=== PATIENT | female | born 1945 | race Caucasian/White ===

== ENCOUNTER 2020-09-15 06:54 | Outpatient (CLI) | payer MEDICARE | END 2020-09-15 23:59 | disposition home or self-care (01) | LOC: LAB 06:54 | PROVIDERS: ATTEND Orthopaedic Surgery | DX: Z01.812 Encounter for preprocedural laboratory examination (principal); Z20.822 Contact with and (suspected) exposure to COVID-19 ==

== ENCOUNTER 2020-09-17 08:21 | Inpatient (IN) | payer MEDICARE ==
[~2020-09-17] VITALS: Ht 162.6 cm; Wt 112.9 kg
[2020-09-17] MEDS ORDERED: POLYMYXIN B SULFATE 500,000 UNITS, BACITRACIN 50,000 UNITS, NORMAL SALINE 20 ML MC ONE (08:45)
[2020-09-17] MEDS ORDERED: CLINDAMYCIN PHOSPHATE 600 MG/4 ML VIAL ONE (09:31)
[2020-09-17] MEDS ORDERED: BUPIVACAINE PF 0.5% 30 ML VIAL ONE (09:32)
[2020-09-17] MEDS ORDERED: HYDROMORPHONE 2 MG/1 ML DISP.SYRIN ONE (09:32)
[2020-09-17] MEDS ORDERED: VANCOMYCIN 1000 MG VIAL ONE (10:37)
[2020-09-17] MEDS ORDERED: BUPIVACAINE/EPI PF 0.25% 30 ML VIAL ONE (11:51)
[2020-09-17] MEDS ORDERED: IV LACTATED RINGERS SOLUTION 1,000 ML IV PRN (14:00)
[2020-09-17 14:05] VITALS: BP 152/66
--- NOTE | 2020-09-17 14:05 | NUR ---
Received report from [facility] recovery room. On NC 2 liters. Patient in to room 314, AAOx4. vitals stable: 97.5 temp, hr 69, 95% saturation when taken off oxygen. sbp 152/66. No c/of pain. Left knee area with cast padding extremity cool to touch pt. able to wiggle her toes dorsalis pedis pulse, audible via doppler and sensation present as verbalized by pt. Pt's at bedside.
[2020-09-17] MEDS ORDERED: CHOL100043 PO (14:09)
[2020-09-17] MEDS ORDERED: ATOR80TA PO (14:09)
[2020-09-17] MEDS ORDERED: ATEN25TA PO (14:09)
[2020-09-17] MEDS ORDERED: APIX5TAB PO (14:09)
[2020-09-17] MEDS ORDERED: MIRA25TA PO (14:09)
[2020-09-17] MEDS ORDERED: GABA600T12 PO (14:09)
[2020-09-17] MEDS ORDERED: MULT-647 PO (14:09)
--- NOTE | 2020-09-17 14:41 | NUR ---
As reported by Chava. pt hasn't voided post surgery.
--- NOTE | 2020-09-17 15:00 | NUR ---
Admitting Narendra Rico notified of pt's arrival to room 314. updated on pt's condition as well.
[2020-09-17] MEDS: CLINDAMYCIN PHOSPHATE IV 600 MG in IV DEXTROSE 5% 100 ML IV SCH ×2 (15:51→21:03)
[2020-09-17 16:00] VITALS: BP 127/66
--- NOTE | 2020-09-17 17:39 | NUR ---
Left pt. on bed resting comfortably, no c/of pain. tolerating diet well no n/v/d/ reported. IV to left hand area. vitals within normal. LLE with dorsalis pedis pulse present extremity cold to touch pt. able to wiggle her toes and sensation present.
--- NOTE | 2020-09-17 17:57 | NUR ---
No voiding reported up to now and at this time pt. educated on the need to perform a bladder scan to make sure everything is working ok and to make sure she's not retaining urine. Pt. refused procedure at this time stating "I don't think I need it I have a pad an I think I'll go now" charge nurse at bedside witnessing as pt is also requesting to spend the night at bedside.
[2020-09-17] MEDS ORDERED: TEMAZEPAM 7.5 MG CAPSULE PO PRN ×2 (18:15→21:15)
[2020-09-17] MEDS ORDERED: MAGNESIUM HYDROXIDE 30 ML LIQUID UDC PO PRN (18:15)
[2020-09-17] MEDS ORDERED: ACETAMINOPHEN 325 MG TABLET PO PRN (18:15)
[2020-09-17] MEDS ORDERED: ONDANSETRON 4 MG/2 ML VIAL IV PRN (18:15)
[2020-09-17] MEDS ORDERED: Z GUARD REMEDY PASTE 57 GM TUBE TOP PRN (18:15)
[2020-09-17 20:12] VITALS: BP 106/50
[2020-09-17] MEDS: ATORVASTATIN 40 MG TABLET PO SCH (20:43)
--- NOTE | 2020-09-17 20:45 | NUR ---
Received patient in bed AAOx4.On RA.No s/s of distress noted.S/P left total knee replacement with dressing intact clean and dry.Left leg elevated on pillow.Ext cool to touch.Capillary refill good.Able to wiggle toes.Iv on left hand patent and intact. Adm IV ATb as ordered no a/r noted.Patient refused to take Neurontin 600 mg, per Patient she only takes 300 mg.HARDNESS INSPECTOR Norman examined and seen patient and made aware with order to change Neurontin 300 mg.VSS .Will continue to monitor.
[2020-09-17] MEDS ORDERED: Medication Not On Formulary EA (Atorvastatin Calcium (Lipitor) 80 MG) PO SCH (21:00)
[2020-09-17] MEDS ORDERED: GABAPENTIN 300 MG CAPSULE PO SCH (21:00)
[2020-09-17] MEDS: GABAPENTIN 300 MG CAPSULE PO SCH (21:56)
[2020-09-17] MEDS: HYDROCODONE/APAP 5-325MG TABLET PO PRN (22:25)
[2020-09-18 04:12] VITALS: BP 97/47
--- NOTE | 2020-09-18 04:30 | NUR ---
Bladder scan done 2x with 420 ml around MN.Explained leiva catheter insertion patient refused.Risk and benefits explained, patient still refused. Stated she has a Pad and she'll be able to go later.Bladder non tender, non distended.Re-checked bladder scan at 0400 with <200ml .Patient was able to urinate. Pad was wet.Still refused f/c at this time.
[2020-09-18 05:45] LABS: MEAN CORPUSCULAR HEMOGLOBIN 29.9 uug (24.7-32.8); MEAN CORPUSCULAR VOLUME 92.3 fL (75.5-95.3); PLATELET COUNT (AUTO) 167 K/uL (179-408)
[2020-09-18 05:52] LABS: POTASSIUM 4.3 mmol/L (3.5-5.1)
[2020-09-18] MEDS: CHOLECALCIFEROL 1,000 UNIT TABLET PO SCH (08:02)
[2020-09-18] MEDS: MULTIVIT, IRON, MIN NO. 8, FA TABLET PO SCH (08:02)
[2020-09-18] MEDS: ATENOLOL 25 MG TABLET PO SCH (09:00)
[2020-09-18] MEDS ORDERED: MULTIVITAMINS THERAPEUTIC PO SCH (09:00)
[2020-09-18] MEDS ORDERED: GABAPENTIN 600 MG PO SCH (09:00)
[2020-09-18] MEDS ORDERED: Mirabegron (Myrbetriq) 25 MG) PO SCH (09:00)
[2020-09-18] MEDS: HYDROCODONE/APAP 5-325MG TABLET PO PRN ×3 (10:00→20:20)
[2020-09-18 11:58] VITALS: BP 93/54
[2020-09-18 20:00] VITALS: BP 135/53
[2020-09-18] MEDS: GABAPENTIN 300 MG CAPSULE PO SCH (20:19)
[2020-09-18] MEDS: ATORVASTATIN 40 MG TABLET PO SCH (20:19)
[2020-09-18] MEDS: IV NS 1000 ML 1,000 ML IV PRN (20:50)
--- NOTE | 2020-09-19 05:47 | NUR ---
Pt slept throughout the night. C/o pain in left knee, relieved with [place]. Pt cooperative and pleasant. Refusing IV fluids, stating that she drinks enough water orally. Safety and comfort provided, call light within reach. No other issues or concerns at this time, will endorse to day shift.
[2020-09-19 05:48] LABS: HEMATOCRIT 36.5 % (31.2-41.9); MEAN CORPUSCULAR HEMOGLOBIN 30.1 uug (24.7-32.8); MEAN CORPUSCULAR VOLUME 91.8 fL (75.5-95.3); PLATELET COUNT (AUTO) 147 K/uL (179-408)
[2020-09-19 05:57] LABS: CREATININE 0.9 mg/dL (0.6-1.3); MAGNESIUM 2.2 mg/dL (1.8-2.4); POTASSIUM 4.3 mmol/L (3.5-5.1)
[2020-09-19] MEDS: CHOLECALCIFEROL 1,000 UNIT TABLET PO SCH (08:07)
[2020-09-19] MEDS: MULTIVIT, IRON, MIN NO. 8, FA TABLET PO SCH (08:07)
[2020-09-19] MEDS: HYDROCODONE/APAP 5-325MG TABLET PO PRN (08:12)
[2020-09-19] MEDS: ATENOLOL 25 MG TABLET PO SCH (08:54)
[2020-09-19] MEDS ORDERED: APIXABAN 5 MG TABLET PO SCH ×2 (09:00→17:00)
[2020-09-19] MEDS ORDERED: IV NORMAL SALINE 500 ML IV ONE (10:30)
--- NOTE | 2020-09-19 10:31 | NUR ---
pt bp is 88/44 per md orders 500ml juliana given
[2020-09-19] MEDS: IV NS 1000 ML 1,000 ML IV PRN (11:17)
[2020-09-19 11:21] VITALS: BP 139/56
[2020-09-19 15:23] VITALS: BP 122/65
[2020-09-19] MEDS ORDERED: DEXAMETHASONE SOD PHOSPHATE 4 MG INJ IV ONE (16:29)
[2020-09-19] MEDS ORDERED: ONDANSETRON 4 MG/2 ML VIAL IV ONE (16:29)
[2020-09-19] MEDS ORDERED: KETOROLAC TROMETHAMINE 30 MG INJ IM ONE (16:29)
[2020-09-19] MEDS ORDERED: LIDOCAINE-MPF 2% 5 ML VIAL IJ ONE (16:29)
[2020-09-19] MEDS ORDERED: IV NORMAL SALINE 1000 ML BAG IV ONE ×2 (16:29)
[2020-09-19] MEDS ORDERED: SEVOFLURANE 250 ML BOTTLE IH ONE (16:29)
[2020-09-19] MEDS ORDERED: PROPOFOL 200 MG/20 ML BOTTLE IV ONE (16:29)
[2020-09-19] MEDS ORDERED: EPHEDRINE SULFATE 50 MG/ML AMPUL IM ONE (16:29)
--- NOTE | 2020-09-19 16:29 | NUR ---
dc orders received noted and carried out.dc instruction and education given to the pt and her family ,pt dc tp aru via bed with iv heplock in stable condition
== END 2020-09-19 16:30 | DRG 470 ==
LOC: DS 08:21 → MEDSURG3 14:17
PROVIDERS: ADMIT Nurse Practitioner Family; ATTEND Nurse Practitioner Family
PROC: 0SRD0J9 Replacement of Left Knee Joint with Synthetic Substitute, Cemented, Open Approach (ICD-10-PCS; principal; 2020-09-17)
DX: M17.12 Unilateral primary osteoarthritis, left knee (principal); Z68.41 Body mass index [BMI] 40.0-44.9, adult; I69.320 Aphasia following cerebral infarction; I10 Essential (primary) hypertension; E78.5 Hyperlipidemia, unspecified; I95.1 Orthostatic hypotension; E66.01 Morbid (severe) obesity due to excess calories
CPT/HCPCS: 36415; 73560; 83735; 85025; A4649; A4663; C1713; C1776; G0378; J1100; J1170; J1885; J2405; J3370; J3490; J7030; J7040; J7060

== ENCOUNTER 2020-09-19 10:59 | Inpatient (IN) | payer MEDICARE ==
[~2020-09-19] VITALS: Ht 162.6 cm; Wt 112.9 kg
[~2020-09-19 10:59] MED LIST: APIX5TAB PO; ATEN25TA PO; ATOR80TA PO; CHOL100043 PO; GABA600T12 PO; MIRA25TA PO; MULT-647 PO
[2020-09-19] MEDS ORDERED: Z GUARD REMEDY PASTE 57 GM TUBE TOP PRN (17:30)
--- NOTE | 2020-09-19 17:58 | NUR ---
75 YEAR OLD FEMALE ADMITTED TO ROOM 325 FOR SP LEFT KNEE REPLACEMENT.PT IS AXOX4.CALL LIGHT WITH IN MD CESAR NOTIFIED FOR THE ADMISSION ORDERS
[2020-09-19 18:21] VITALS: BP 102/50
[2020-09-19] MEDS: IV NS 1000 ML 1,000 ML IV SCH (18:24)
[2020-09-19 20:00] VITALS: BP 137/60
[2020-09-19] MEDS: GABAPENTIN 300 MG CAPSULE PO SCH (21:42)
[2020-09-19] MEDS: ATORVASTATIN 40 MG TABLET PO SCH (21:42)
[2020-09-20 04:00] VITALS: BP 123/78
--- NOTE | 2020-09-20 05:21 | NUR ---
Received patient resting in bed. No s/s of acute distress noted at this time. On RA denies SOB. Oral temp 100.5 at the beginning of the shift, removed excess blankets and provided cooling measures, recent temp 99.8. Left hand IV patent and intact. Patient denies pain and discomfort. Safety measures in place, all patient needs met and attended to. Will endorse to oncoming nurse.
[2020-09-20] MEDS: IV NS 1000 ML 1,000 ML IV SCH (06:26)
[2020-09-20 08:00] VITALS: BP 144/67
[2020-09-20] MEDS: ATENOLOL 25 MG TABLET PO SCH (09:16)
[2020-09-20] MEDS: CHOLECALCIFEROL 1,000 UNIT TABLET PO SCH (09:16)
[2020-09-20] MEDS: MULTIVITAMINS,THERAPEUTIC TABLET PO SCH (09:16)
[2020-09-20] MEDS: APIXABAN 5 MG TABLET PO SCH ×2 (09:17→17:27)
[2020-09-20] MEDS: HYDROCODONE/APAP 5-325MG TABLET PO PRN ×2 (12:56→20:24)
[2020-09-20 16:00] VITALS: BP 115/52
[2020-09-20] MEDS ORDERED: FLEET ENEMA 133 ML BOTTLE RC PRN (16:45)
[2020-09-20] MEDS ORDERED: BISACODYL 10 MG SUPP.RECT RC PRN (16:45)
[2020-09-20] MEDS ORDERED: MAGNESIUM HYDROXIDE 30 ML LIQUID UDC PO PRN (16:45)
[2020-09-20 20:00] VITALS: BP 122/65
[2020-09-20] MEDS: GABAPENTIN 300 MG CAPSULE PO SCH (20:23)
[2020-09-20] MEDS: ATORVASTATIN 40 MG TABLET PO SCH (20:23)
--- NOTE | 2020-09-20 21:13 | NUR ---
Received pt resting in bed. AAO x4. Pt's was at bedside. No acute distress noted. C/o 6/10 pain on the left knee, PRN [place] and other due meds given as ordered. Encourage pt to turn and reposition, pt refused. Risks and benefits explained. Pt stated that mobility increases her pain. Safety measures maintained. Bed alarm on. Encouraged pt to use call light. Will continue to monitor.
[2020-09-21 04:00] VITALS: BP 121/58
[2020-09-21 08:00] VITALS: BP 130/57
[2020-09-21] MEDS: CHOLECALCIFEROL 1,000 UNIT TABLET PO SCH (08:07)
[2020-09-21] MEDS: MULTIVITAMINS,THERAPEUTIC TABLET PO SCH (08:07)
[2020-09-21] MEDS: ATENOLOL 25 MG TABLET PO SCH (08:14)
[2020-09-21] MEDS: HYDROCODONE/APAP 5-325MG TABLET PO PRN (08:15)
[2020-09-21] MEDS: APIXABAN 5 MG TABLET PO SCH ×2 (08:39→17:26)
[2020-09-21] MEDS: OXYCODONE HCL 5 MG TABLET PO PRN ×2 (13:35→19:58)
[2020-09-21 16:11] VITALS: BP 117/44
[2020-09-21] MEDS: ATORVASTATIN 40 MG TABLET PO SCH (20:00)
[2020-09-21] MEDS: GABAPENTIN 300 MG CAPSULE PO SCH (20:00)
[2020-09-21 20:14] VITALS: BP 119/55
--- NOTE | 2020-09-21 20:42 | NUR ---
Received pt resting in bed. was at bedside. AAO x4. No acute distress noted. C/o 8/10 pain on the left knee, PRN Oxyir and other due meds given as ordered. Encouraged pt to turn and reposition, pt refused and stated she will feel more pain and that she will try to go to commode tomorrow to practice her mobility. Risks and benefits explained. Safety measures maintained. Call light and personal items within reach. Will continue to monitor.
[2020-09-22 04:36] VITALS: BP 107/50
[2020-09-22] MEDS: OXYCODONE HCL 5 MG TABLET PO PRN ×3 (06:11→20:47)
[2020-09-22 08:00] VITALS: BP 101/45
[2020-09-22] MEDS: ATENOLOL 25 MG TABLET PO SCH (09:00)
[2020-09-22] MEDS: MULTIVITAMINS,THERAPEUTIC TABLET PO SCH (09:11)
[2020-09-22] MEDS: CHOLECALCIFEROL 1,000 UNIT TABLET PO SCH (09:11)
[2020-09-22] MEDS: APIXABAN 5 MG TABLET PO SCH ×2 (09:13→16:34)
[2020-09-22] MEDS: MIRALAX 17 GM POWD.PACK PO SCH (10:55)
--- NOTE | 2020-09-22 11:46 | NUR ---
Pt in A&Ox4, able to verbalize needs, no acute distress noted. Due medications given per order, no a/r noted. Morning Atenolol held d/t decreased BP, MD Dr. Bates aware. Pt stated no BM since before admission, Dr. Bates at bedside and aware with new orders. Miralax administered per order, will monitor for effectiveness. Pt participated with OT this am, able to sit on edge of bed but refused to stand, see OT documentation. Fall precautions and safety measures in place. Call light and belongings within reach.
--- NOTE | 2020-09-22 12:45 | NUR ---
CPM machine removed at 2 hours, pt tolerated well. Pt reported L knee pain 8/10 on adult scale, PRN Oxyir administered per order. Dr. Padilla at bedside this afternoon, new order in place, will carry out.
[2020-09-22 16:44] VITALS: BP 124/64
--- NOTE | 2020-09-22 18:17 | NUR ---
Pt in bed finishing dinner, all needs met at this time. Jerry at bedside, nursing care discussed with pt and family. Pt with no BM at this time, offered PRN Fleet enema. Pt declined enema, risks, benefits, side effects discussed with pt, continued to decline at this time. Pt declined getting OOB to [facility], per pt "maybe tomorrow". Encouraged pt and reinforced ARU plan of care. Ice pack in place on left knee and cool washcloth on forehead per pt request. Will endorse to security shift manager nurse for continuity of care.
[2020-09-22 20:32] VITALS: BP 118/67
[2020-09-22] MEDS: GABAPENTIN 300 MG CAPSULE PO SCH (20:39)
[2020-09-22] MEDS: ATORVASTATIN 40 MG TABLET PO SCH (20:39)
--- NOTE | 2020-09-22 21:00 | NUR ---
Received pt resting in bed. AAO x4. at bedside. No acute distress noted. C/o 7/10 pain on the left knee, PRN OXY administered per pt request prior to being cleaned/changed. All due medications administered, and tolerated well. Needs attended too, kept comfortable and dry. Safety measures maintained. Will continue to monitor.
[2020-09-23 04:45] VITALS: BP 121/59
[2020-09-23] MEDS: OXYCODONE HCL 5 MG TABLET PO PRN ×3 (06:49→21:50)
[2020-09-23 08:09] VITALS: BP 124/53
[2020-09-23] MEDS: MIRALAX 17 GM POWD.PACK PO SCH (08:40)
[2020-09-23] MEDS: CHOLECALCIFEROL 1,000 UNIT TABLET PO SCH (08:40)
[2020-09-23] MEDS: MULTIVITAMINS,THERAPEUTIC TABLET PO SCH (08:40)
[2020-09-23] MEDS: ATENOLOL 25 MG TABLET PO SCH (08:41)
[2020-09-23] MEDS: APIXABAN 5 MG TABLET PO SCH ×2 (08:42→16:55)
[2020-09-23 12:11] VITALS: BP 146/77
--- NOTE | 2020-09-23 13:00 | NUR ---
Dr. Pryor notified pt's original dressing coming loose. Dr. Pryor with order to change dressing. Will carry out.
[2020-09-23 16:05] VITALS: BP 147/55
--- NOTE | 2020-09-23 16:09 | NUR ---
INDIVIDUALIZED PLAN OF CARE
[2020-09-23] MEDS ORDERED: BISACODYL 5 MG TABLET.DR PO PRN (19:00)
--- NOTE | 2020-09-23 19:10 | NUR ---
Pt in bed, no acute distress noted. Dressing changed per order, photo taken for chart. Per PT and OT, pt presented with difficulty during therapeutic activities. Pt reported severe pain in left knee, PRN Oxyir administered per order. Per pt and , pt more lethargic after medication administration. Pt stated she would like to speak with Dr. Padilla regarding medication, Dr. Padilla informed. Pt stated she was "unhappy with the care here". Encouraged pt to express feelings, needs met. warehouse logistics manager informed and spoke with pt and . Pt noted with no BM this shift, pt refused PRN Dulcolax suppository and Fleet enema. Dr. Rollins made aware with new order. Will endorse to research clerk for continuity of care.
[2020-09-23] MEDS ORDERED: ACETAMINOPHEN 325 MG TABLET PO PRN (20:00)
[2020-09-23] MEDS: GABAPENTIN 300 MG CAPSULE PO SCH (20:16)
[2020-09-23] MEDS: ATORVASTATIN 40 MG TABLET PO SCH (20:16)
[2020-09-23 20:27] VITALS: BP 124/50
--- NOTE | 2020-09-23 22:00 | NUR ---
99.9 fever, cooling measure completed, administered Tylenol temp decreased 98.8. No new changed.
--- NOTE | 2020-09-23 22:45 | NUR ---
Pt in bed, no acute distress noted. Pt reported mild discomfort at the beginning of the shift. Pain increased 9/10 administered Oxycodone PRN, as per pt request. All due medications administered, and tolerated well. administered PRN Dulcolax PO. Need attend too. Pt stated she was "unhappy with the care here and wants to go home tomorrow, not happy with her progress." Encouraged pt to express feelings. Changed pt, kept clean and dry and comfortable. Call light within reach, encouraged pt to use. Safety measures maintained. Continue plan of care.
[2020-09-24 04:00] VITALS: BP 107/46
[2020-09-24] MEDS: OXYCODONE HCL 5 MG TABLET PO PRN ×3 (06:43→20:41)
[2020-09-24] MEDS: MIRALAX 17 GM POWD.PACK PO SCH (08:52)
[2020-09-24] MEDS: CHOLECALCIFEROL 1,000 UNIT TABLET PO SCH (08:52)
[2020-09-24] MEDS: MULTIVITAMINS,THERAPEUTIC TABLET PO SCH (08:52)
[2020-09-24] MEDS: APIXABAN 5 MG TABLET PO SCH ×2 (08:52→17:33)
[2020-09-24 09:01] VITALS: BP 122/60
[2020-09-24] MEDS: ATENOLOL 25 MG TABLET PO SCH (09:01)
--- NOTE | 2020-09-24 09:15 | NUR ---
Pt sat on edge of bed for breakfast, tolerated well, no acute distress. VSS. Safety and fall precautions maintained. Call light and belongings within reach.
--- NOTE | 2020-09-24 13:34 | NUR ---
Dr. Padilla at bedside this afternoon, spoke with pt and her . Pt requested scheduled pain medication instead of PRN. to adjust order.
--- NOTE | 2020-09-24 14:00 | NUR ---
Pt requested to speak with case specialist, case specialist informed.
--- NOTE | 2020-09-24 15:18 | NUR ---
INTERDISCIPLINARY TEAM CONFERENCE
--- NOTE | 2020-09-24 15:30 | NUR ---
PATIENT SET UP ON CPM, NO MORE THAN 2HR INCREMENTS AT A TIME. PT AGREEABLE TO CALL FOR NURSING ASSIST FOR CPM ON/OFF PER MD ORDERS. GOOD TY UP TO 60 DEG OF KNEE FLEXION.
--- NOTE | 2020-09-24 15:40 | NUR ---
Pt requested PRN Oxyir for severe L knee pain, administered per order. Per pt, effective.
[2020-09-24 16:00] VITALS: BP 109/52
--- NOTE | 2020-09-24 17:30 | NUR ---
CPM machine removed with POTTER OR CERAMIC ARTIST and RN, pt tolerated well, no reports of pain/discomfort at this time.
--- NOTE | 2020-09-24 19:00 | NUR ---
Pt in bed, no acute distress, all needs met at this time. Due medications given per order, no a/r noted. Per CAN INTAKE WORKER, pt declined evening diaper change. This chief writer and CAN INTAKE WORKER encouraged pt, pt continued to decline and stated "I want to be changed around 9 o'clock". No BM noted today. Will endorse to respiratory therapy director nurse. Pt requested not to be awoken for 0400 vital signs, will endorse. Safety maintained, call light and belongings within reach.
[2020-09-24 20:00] VITALS: BP 121/60
[2020-09-24] MEDS: ATORVASTATIN 10 MG TABLET PO SCH (20:40)
[2020-09-24] MEDS: GABAPENTIN 300 MG CAPSULE PO SCH (20:40)
--- NOTE | 2020-09-24 21:00 | NUR ---
Pt in bed, no acute distress noted. Pt report 6/10 pain and request PRN oxy. All due medications administered, and tolerated well. Need attend too. Per AIRBORNE SENSOR SPECIALIST, pt declined evening diaper change. Encouraged pt to be changed before going to bed, pt continued to decline and stated "I want to be changed in the morning. Pt is very sleepy and does not want to be disturbed at this time. Call light within reach, encouraged pt to use. Safety measures maintained. Continue plan of care.
[2020-09-24] MEDS ORDERED: NALOXONE HCL 0.4 MG/ML AMPUL IV PRN (22:30)
[2020-09-25] MEDS: OXYCODONE HCL 10 MG TAB.SR.12H PO SCH ×3 (06:26→21:05)
[2020-09-25 06:33] LABS: HEMATOCRIT 32.5 % (31.2-41.9); MEAN CORPUSCULAR HEMOGLOBIN 30.1 uug (24.7-32.8); MEAN CORPUSCULAR VOLUME 90.6 fL (75.5-95.3); PLATELET COUNT (AUTO) 360 K/uL (179-408)
[2020-09-25 07:01] LABS: THYROID STIMULATING HORMONE 2.1 mIU/mL (0.358-3.740)
[2020-09-25 07:17] LABS: BILIRUBIN,TOTAL 2.2 mg/dL (0.2-1.0); CREATININE 0.8 mg/dL (0.6-1.3); MAGNESIUM 2.4 mg/dL (1.8-2.4); PHOSPHOROUS 3.8 mg/dL (2.5-4.9); POTASSIUM 4.8 mmol/L (3.5-5.1); TOTAL PROTEIN, SERUM 5.9 g/dL (6.4-8.2)
[2020-09-25] MEDS: CHOLECALCIFEROL 1,000 UNIT TABLET PO SCH (09:02)
[2020-09-25] MEDS: APIXABAN 5 MG TABLET PO SCH ×3 (09:02→21:06)
[2020-09-25] MEDS: MULTIVITAMINS,THERAPEUTIC TABLET PO SCH (09:02)
[2020-09-25] MEDS: MIRALAX 17 GM POWD.PACK PO SCH (09:04)
[2020-09-25] MEDS: ATENOLOL 25 MG TABLET PO SCH (09:04)
[2020-09-25 09:05] VITALS: BP 137/71
[2020-09-25 15:47] VITALS: BP 112/74
[2020-09-25 20:23] VITALS: BP 127/63
[2020-09-25] MEDS: GABAPENTIN 300 MG CAPSULE PO SCH (21:00)
[2020-09-25] MEDS: ATORVASTATIN 10 MG TABLET PO SCH (21:04)
--- NOTE | 2020-09-25 21:20 | NUR ---
Received Pt in bed, no acute distress noted. Pt c/o pain and request PRN oxy and all due medications to be administered around 2100 and assist with settling for the night, tolerated well. Assisted with evening care and brief change, Pt stated "I do not want to be bothered until 0630". Safety measures and call light within reach, encouraged pt to use to call to be changed during the night.
[2020-09-26 04:00] VITALS: BP 126/56
[2020-09-26] MEDS: OXYCODONE HCL 10 MG TAB.SR.12H PO SCH ×3 (06:14→21:19)
[2020-09-26 06:48] LABS: MEAN CORPUSCULAR HEMOGLOBIN 30.4 uug (24.7-32.8); MEAN CORPUSCULAR VOLUME 90.5 fL (75.5-95.3); PLATELET COUNT (AUTO) 413 K/uL (179-408)
[2020-09-26 07:08] LABS: CREATININE 0.8 mg/dL (0.6-1.3); MAGNESIUM 2.2 mg/dL (1.8-2.4); PHOSPHOROUS 3.8 mg/dL (2.5-4.9); POTASSIUM 3.9 mmol/L (3.5-5.1); TOTAL PROTEIN, SERUM 6.2 g/dL (6.4-8.2)
[2020-09-26 08:38] VITALS: BP 131/67
[2020-09-26] MEDS: ATENOLOL 25 MG TABLET PO SCH (08:50)
[2020-09-26] MEDS: CHOLECALCIFEROL 1,000 UNIT TABLET PO SCH (08:50)
[2020-09-26] MEDS: MULTIVITAMINS,THERAPEUTIC TABLET PO SCH (08:50)
[2020-09-26] MEDS: MIRALAX 17 GM POWD.PACK PO SCH ×2 (08:51→08:57)
[2020-09-26] MEDS: APIXABAN 5 MG TABLET PO SCH ×2 (08:55→21:18)
--- NOTE | 2020-09-26 08:57 | NUR ---
patient is alert, oriented x4, no sob, resp even nonlabored, skin warm and dry to touch, patient refused miralax for constipation, patient stated it makes me feel different, upon explanation risks of constipation, and benefits and importance of taking medication, patient verbalized understanding of it and stated she is not worried about her constipation, it will resolve its own, will continue to reinforce and monitor, offered patient if she is willing to take another medication for constipation, patient stated "no". yesterday patient transferred to bedside commode, but unable to make BM.
[2020-09-26] MEDS: NUTRISOURCE FIBER 4 GM PACKET PO SCH ×2 (13:09→17:00)
[2020-09-26 16:36] VITALS: BP 117/54
[2020-09-26 20:00] VITALS: BP 129/63
[2020-09-26] MEDS: ATORVASTATIN 10 MG TABLET PO SCH (21:17)
[2020-09-26] MEDS: GABAPENTIN 300 MG CAPSULE PO SCH (21:17)
[2020-09-27 04:00] VITALS: BP 132/60
[2020-09-27] MEDS: OXYCODONE HCL 10 MG TAB.SR.12H PO SCH ×3 (06:14→22:00)
[2020-09-27] MEDS: MIRALAX 17 GM POWD.PACK PO SCH (09:00)
[2020-09-27] MEDS: CHOLECALCIFEROL 1,000 UNIT TABLET PO SCH (09:14)
[2020-09-27] MEDS: MULTIVITAMINS,THERAPEUTIC TABLET PO SCH (09:15)
[2020-09-27] MEDS: ATENOLOL 25 MG TABLET PO SCH (09:16)
[2020-09-27] MEDS: NUTRISOURCE FIBER 4 GM PACKET PO SCH ×3 (09:18→17:08)
[2020-09-27] MEDS: APIXABAN 5 MG TABLET PO SCH ×2 (09:18→21:11)
--- NOTE | 2020-09-27 15:57 | NUR ---
Patient refused OT today. Patient stated that she is too tired from earlier's session from the PT.
[2020-09-27 20:21] VITALS: BP 96/45
[2020-09-27] MEDS: ATORVASTATIN 10 MG TABLET PO SCH (21:00)
[2020-09-27 21:08] VITALS: BP 115/66
[2020-09-27] MEDS: GABAPENTIN 300 MG CAPSULE PO SCH (21:11)
[2020-09-28 04:00] VITALS: BP 145/69
[2020-09-28] MEDS: OXYCODONE HCL 10 MG TAB.SR.12H PO SCH ×3 (06:25→22:00)
--- NOTE | 2020-09-28 06:44 | NUR ---
Patient AAOx4. No s/s of acute distress noted at this time. Patient slept well, refused Oxy and Lipitor evening medications. Patient education provided, patient continued to refuse medications. C/o Left knee pain this morning 08/18, pain medication provided per order. All patient needs were met and attended to. Safety measures remain intact and will endorse to oncoming nurse.
[2020-09-28 08:00] VITALS: BP 122/65
[2020-09-28] MEDS: NUTRISOURCE FIBER 4 GM PACKET PO SCH ×3 (09:00→17:00)
[2020-09-28] MEDS: MULTIVITAMINS,THERAPEUTIC TABLET PO SCH (09:20)
[2020-09-28] MEDS: ATENOLOL 25 MG TABLET PO SCH (09:20)
[2020-09-28] MEDS: MIRALAX 17 GM POWD.PACK PO SCH (09:20)
[2020-09-28] MEDS: CHOLECALCIFEROL 1,000 UNIT TABLET PO SCH (09:20)
[2020-09-28] MEDS: APIXABAN 5 MG TABLET PO SCH ×2 (09:24→21:43)
[2020-09-28 15:01] LABS: BILIRUBIN,TOTAL 1.6 mg/dL (0.2-1.0); CREATININE 0.8 mg/dL (0.6-1.3); POTASSIUM 4.4 mmol/L (3.5-5.1); TOTAL PROTEIN, SERUM 6.5 g/dL (6.4-8.2)
[2020-09-28 16:00] VITALS: BP 131/54
[2020-09-28 20:32] VITALS: BP 119/54
[2020-09-28] MEDS: ATORVASTATIN 10 MG TABLET PO SCH (21:00)
[2020-09-28] MEDS: GABAPENTIN 300 MG CAPSULE PO SCH (21:41)
[2020-09-29 06:12] VITALS: BP 125/60
[2020-09-29] MEDS: OXYCODONE HCL 10 MG TAB.SR.12H PO SCH ×3 (06:13→22:59)
--- NOTE | 2020-09-29 07:40 | NUR ---
RECEIVED AWAKE, ALERT AND ORIENTED. IN NO ACUTE DISTRESS. DENIES PAIN AT THIS TIME. LEFT KNEE SURGERY SITE INTACT AND CLEAN. NO COMPLAINTS AT THIS TIME. SAFETY AND FALL PRECAUTIONS REMAIN IN PLACE. WILL CONTINUE TO MONITOR.
[2020-09-29 08:00] VITALS: BP 135/65
--- NOTE | 2020-09-29 08:30 | NUR ---
PATIENT FOR MRCP AT 2PM TODAY. NPO MAINTAINED. PATIENT VERBALIZED UNDERSTANDING. FAMILY AT BEDSIDE AWARE.
[2020-09-29] MEDS: NUTRISOURCE FIBER 4 GM PACKET PO SCH ×3 (09:00→17:47)
[2020-09-29] MEDS: MULTIVITAMINS,THERAPEUTIC TABLET PO SCH (09:00)
[2020-09-29] MEDS: APIXABAN 5 MG TABLET PO SCH ×2 (09:00→21:01)
[2020-09-29] MEDS: MIRALAX 17 GM POWD.PACK PO SCH (09:00)
[2020-09-29] MEDS: CHOLECALCIFEROL 1,000 UNIT TABLET PO SCH (09:00)
[2020-09-29] MEDS: ATENOLOL 25 MG TABLET PO SCH (09:00)
--- NOTE | 2020-09-29 14:26 | NUR ---
PICKED UP BY SHELLFISH CHECKER FROM [facility] FOR MRCP AT [facility]. REPORT GIVEN. NO ACUTE DISTRESS. ACCOMPANIED BY SPOUSE.
--- NOTE | 2020-09-29 16:50 | NUR ---
CAME BACK FROM SCHEDULED MRCP AT [facility] ACCOMPANIED BY . IN NO ACUTE DISTRESS. DENIES PAIN.
--- NOTE | 2020-09-29 19:00 | NUR ---
RESTING. SPOUSE AT BEDSIDE. NO COMPLAINTS. SX SITE CLEAN AND DRY. NO DRAINAGE. SAFETY AND FALL PRECAUTIONS MAINTAINED. PATIENT IS KEPT COMFORTABLE.
[2020-09-29 20:00] VITALS: BP 113/59
[2020-09-29] MEDS: GABAPENTIN 300 MG CAPSULE PO SCH (20:56)
[2020-09-29] MEDS: ATORVASTATIN 10 MG TABLET PO SCH (20:56)
[2020-09-30 01:06] LABS: HEPATITIS A AB, IgM Negative (Negative); HEPATITIS A AB, TOTAL Positive (Negative); HEPATITIS B SURFACE AB Reactive (.); HEPATITIS B SURFACE AG Negative (Negative); HEPATITIS Be ANTIGEN Negative (Negative)
[2020-09-30 04:00] VITALS: BP 134/64
--- NOTE | 2020-09-30 05:43 | NUR ---
Pt slept comfortably at night. Pt refused routine pain med last night as she is not in any pain. AAO x4. No acute distress noted. Due meds given as ordered. No s/s of infection noted. Safety measures maintained. Call light and personal items within reach. Will continue to monitor.
[2020-09-30] MEDS: OXYCODONE HCL 10 MG TAB.SR.12H PO SCH ×3 (06:51→22:00)
--- NOTE | 2020-09-30 06:52 | NUR ---
Pt offered medication for constipation, pt refused. Risks and benefits explained. Will endorse accordingly.
--- NOTE | 2020-09-30 07:10 | NUR ---
RECEIVED PATIENT IN BED AWAKE, NO COMPLAINS OF ANY SOB, PAIN OR DISCOMFORT AT THIS TIME. CALL LIGHT WITHIN REACH WILL CONTINUE TO MONITOR.
[2020-09-30] MEDS: MULTIVITAMINS,THERAPEUTIC TABLET PO SCH (08:54)
[2020-09-30] MEDS: CHOLECALCIFEROL 1,000 UNIT TABLET PO SCH (08:54)
[2020-09-30] MEDS: NUTRISOURCE FIBER 4 GM PACKET PO SCH ×3 (08:54→17:00)
[2020-09-30] MEDS: MIRALAX 17 GM POWD.PACK PO SCH ×2 (08:54→09:00)
[2020-09-30] MEDS: APIXABAN 5 MG TABLET PO SCH ×2 (08:55→20:26)
[2020-09-30] MEDS: ATENOLOL 25 MG TABLET PO SCH (09:01)
[2020-09-30 09:33] LABS: BILIRUBIN,DIRECT 0.4 mg/dL (0.0-0.2); BILIRUBIN,TOTAL 1.7 mg/dL (0.2-1.0); TOTAL PROTEIN, SERUM 6.4 g/dL (6.4-8.2)
[2020-09-30 16:04] VITALS: BP 122/62
--- NOTE | 2020-09-30 18:02 | NUR ---
patient in bed awake, HOB elevated. no complains of any SOB, pain or discomfort. patient of room air. call light and belongings within reach. safety precautions in place. will report to oncoming shift.
--- NOTE | 2020-09-30 19:30 | NUR ---
Patient report received from day shift. Patient seen in bed resting. Awake, alert and oriented x 4. No reports of pain or shortness of breath at this time. Patient comfortable on room air. Vital signs stable. Bed in low and locked position. Safety and fall precautions in place. Call light within reach.
[2020-09-30 20:00] VITALS: BP 110/52
[2020-09-30] MEDS: GABAPENTIN 300 MG CAPSULE PO SCH (20:26)
[2020-09-30] MEDS: ATORVASTATIN 10 MG TABLET PO SCH ×2 (20:27→20:30)
--- NOTE | 2020-09-30 21:10 | NUR ---
Patient refused Lipitor and oxycodone.
[2020-10-01] MEDS: OXYCODONE HCL 10 MG TAB.SR.12H PO SCH ×3 (06:33→21:05)
--- NOTE | 2020-10-01 07:09 | NUR ---
Patient awake and resting in bed. Alert and oriented x 4. Patient complains of left knee pain at this time. Given ordered Oxycodone. No reports of shortness of breath. Vital signs stable. Safety precautions in place. Bed in low and locked position. Call light within reach.
--- NOTE | 2020-10-01 07:30 | NUR ---
Received patient in bed awake alert and oriented times 4. Family at bedside. No sign of distress noted at this time. Patient has devonte and steri strips on left leg. No complaint of pain at this time. Safety precautions are in place. Will continue to monitor.
[2020-10-01 08:07] LABS: HEMATOCRIT 33.4 % (31.2-41.9); MEAN CORPUSCULAR HEMOGLOBIN 30.2 uug (24.7-32.8); MEAN CORPUSCULAR VOLUME 90.1 fL (75.5-95.3); PLATELET COUNT (AUTO) 505 K/uL (179-408)
[2020-10-01 08:31] LABS: BILIRUBIN,DIRECT 0.4 mg/dL (0.0-0.2); BILIRUBIN,TOTAL 1.4 mg/dL (0.2-1.0); CREATININE 0.8 mg/dL (0.6-1.3); MAGNESIUM 2.3 mg/dL (1.8-2.4); PHOSPHOROUS 3.8 mg/dL (2.5-4.9); POTASSIUM 4.8 mmol/L (3.5-5.1); TOTAL PROTEIN, SERUM 6.4 g/dL (6.4-8.2)
[2020-10-01 08:33] VITALS: BP 133/69
[2020-10-01] MEDS: MULTIVITAMINS,THERAPEUTIC TABLET PO SCH (08:56)
[2020-10-01] MEDS: APIXABAN 5 MG TABLET PO SCH ×2 (08:56→20:50)
[2020-10-01] MEDS: CHOLECALCIFEROL 1,000 UNIT TABLET PO SCH (08:57)
[2020-10-01] MEDS: ATENOLOL 25 MG TABLET PO SCH (08:58)
[2020-10-01] MEDS: NUTRISOURCE FIBER 4 GM PACKET PO SCH ×3 (08:58→17:00)
[2020-10-01] MEDS: MIRALAX 17 GM POWD.PACK PO SCH (09:00)
--- NOTE | 2020-10-01 14:21 | NUR ---
INTERDISCIPLINARY TEAM CONFERENCE
[2020-10-01 15:05] VITALS: BP 123/64
--- NOTE | 2020-10-01 18:35 | NUR ---
Patient left resting in bed. Covid swab done and sent to lab. medications given as ordered. No distress noted at this time. Safety measures implemented. Will endorse to the oncoming nurse.
[2020-10-01 20:18] VITALS: BP 133/54
[2020-10-01] MEDS: GABAPENTIN 300 MG CAPSULE PO SCH (20:49)
[2020-10-01] MEDS: ATORVASTATIN 10 MG TABLET PO SCH (20:51)
--- NOTE | 2020-10-01 21:16 | NUR ---
AAOx4 Watching TV upon initial rounds. Needs attended. VSS. Patient has a left total knee replacement on 09/27. Left knee with sutures /steri strips ULISES. All due meds given. Refused Oxy 10 mg scheduled, saying she don't need it, she's not in pain. Fall precautions maintained. Siderails up for safety. No acute distress noted. Will monitor patient. Continent of bowel and bladder. No BM noted this shift.
[2020-10-02] MEDS: OXYCODONE HCL 10 MG TAB.SR.12H PO SCH ×3 (06:11→21:27)
[2020-10-02 08:06] VITALS: BP 135/66
[2020-10-02] MEDS: MIRALAX 17 GM POWD.PACK PO SCH ×2 (08:46→08:54)
[2020-10-02] MEDS: MULTIVITAMINS,THERAPEUTIC TABLET PO SCH (08:46)
[2020-10-02] MEDS: ATENOLOL 25 MG TABLET PO SCH (08:47)
[2020-10-02] MEDS: CHOLECALCIFEROL 1,000 UNIT TABLET PO SCH (08:48)
[2020-10-02] MEDS: APIXABAN 5 MG TABLET PO SCH ×2 (08:52→20:33)
[2020-10-02] MEDS: NUTRISOURCE FIBER 4 GM PACKET PO SCH ×3 (08:55→17:44)
[2020-10-02 14:49] VITALS: BP 119/61
[2020-10-02 20:18] VITALS: BP 108/49
[2020-10-02] MEDS: GABAPENTIN 300 MG CAPSULE PO SCH (20:33)
[2020-10-02] MEDS: ATORVASTATIN 10 MG TABLET PO SCH (20:34)
--- NOTE | 2020-10-02 21:59 | NUR ---
Awake alert and oriented x4. No distress noted. VSS. All due meds given as ordered. Refused lipitor and pain meds this evening. Continent of bowel and bladder. Left knee incision clean dry and intact with sutures and steristrips FUNERAL PRE ARRANGEMENT SPECIALIST. Possible d/c on Tuesday. Kept comfortable.
[2020-10-03] MEDS: OXYCODONE HCL 10 MG TAB.SR.12H PO SCH ×3 (06:14→21:50)
--- NOTE | 2020-10-03 06:30 | NUR ---
End of shift notes: Quiet night. AAOx4 Needs attended. VSS. Pain meds given @0600 am. Tolerated well. No acute distress noted. Slept well most of the shift.Voiding well.
[2020-10-03 07:00] LABS: HEMATOCRIT 33.8 % (31.2-41.9); MEAN CORPUSCULAR HEMOGLOBIN 29.9 uug (24.7-32.8); MEAN CORPUSCULAR VOLUME 90.1 fL (75.5-95.3); PLATELET COUNT (AUTO) 501 K/uL (179-408)
[2020-10-03 07:18] LABS: BILIRUBIN,DIRECT 0.3 mg/dL (0.0-0.2); BILIRUBIN,TOTAL 1.1 mg/dL (0.2-1.0); CREATININE 0.8 mg/dL (0.6-1.3); POTASSIUM 4.1 mmol/L (3.5-5.1); TOTAL PROTEIN, SERUM 6.2 g/dL (6.4-8.2)
[2020-10-03 08:00] VITALS: BP 110/60
[2020-10-03] MEDS: CHOLECALCIFEROL 1,000 UNIT TABLET PO SCH (08:47)
[2020-10-03] MEDS: MIRALAX 17 GM POWD.PACK PO SCH (08:47)
[2020-10-03] MEDS: MULTIVITAMINS,THERAPEUTIC TABLET PO SCH (08:47)
[2020-10-03] MEDS: NUTRISOURCE FIBER 4 GM PACKET PO SCH ×3 (08:47→17:01)
[2020-10-03] MEDS: APIXABAN 5 MG TABLET PO SCH ×2 (08:57→20:12)
[2020-10-03] MEDS: ATENOLOL 25 MG TABLET PO SCH (09:47)
[2020-10-03 16:00] VITALS: BP 131/66
[2020-10-03 20:00] VITALS: BP 129/48
[2020-10-03] MEDS: ATORVASTATIN 10 MG TABLET PO SCH (20:11)
[2020-10-03] MEDS: GABAPENTIN 300 MG CAPSULE PO SCH (20:11)
--- NOTE | 2020-10-03 21:50 | NUR ---
Received pt resting in bed. AAO x4. No acute distress noted. Denies pain/ discomfort. Pt refused Lipitor and Oxycontin. Risks and benefits explained. Other due meds given as ordered. Surgical site ULISES with steri strips, no s/s of infection noted. Pt to be d/c tomorrow. Safety measures maintained. Call light and personal items within reach. Will continue to monitor.
[2020-10-04 05:50] VITALS: BP 125/58
[2020-10-04] MEDS: OXYCODONE HCL 10 MG TAB.SR.12H PO SCH ×2 (06:50→14:21)
[2020-10-04 08:00] VITALS: BP 136/68
[2020-10-04 08:50] VITALS: BP 136/68
[2020-10-04] MEDS: ATENOLOL 25 MG TABLET PO SCH (08:50)
[2020-10-04] MEDS: MULTIVITAMINS,THERAPEUTIC TABLET PO SCH (08:50)
[2020-10-04] MEDS: APIXABAN 5 MG TABLET PO SCH (08:51)
[2020-10-04] MEDS: CHOLECALCIFEROL 1,000 UNIT TABLET PO SCH (08:51)
[2020-10-04] MEDS: NUTRISOURCE FIBER 4 GM PACKET PO SCH ×2 (08:58→13:25)
[2020-10-04] MEDS: MIRALAX 17 GM POWD.PACK PO SCH (08:58)
--- NOTE | 2020-10-04 16:13 | NUR ---
Patient discharged to home via ambulance. Discharge instructions given, verbalized understanding.
== END 2020-10-04 14:30 | disposition home health service (06) | DRG 559 ==
LOC: MEDSURG3 17:09 → SRC 17:13
PROVIDERS: ADMIT Physical Medicine & Rehabilitation Pain Medicine; ATTEND Physical Medicine & Rehabilitation Pain Medicine
DX: Z47.1 Aftercare following joint replacement surgery (principal); E43 Unspecified severe protein-calorie malnutrition; Z68.41 Body mass index [BMI] 40.0-44.9, adult; D68.59 Other primary thrombophilia; E78.5 Hyperlipidemia, unspecified; I69.320 Aphasia following cerebral infarction; I10 Essential (primary) hypertension; I95.1 Orthostatic hypotension; M17.12 Unilateral primary osteoarthritis, left knee; Z96.652 Presence of left artificial knee joint; E66.9 Obesity, unspecified; G89.29 Other chronic pain; K83.8 Other specified diseases of biliary tract; Z88.0 Allergy status to penicillin
CPT/HCPCS: 36415; 74181; 76705; 83690; 83735; 84100; 84443; 85025; 85610; 86704; 86705; 86706; 86708; 86709; 86803; 87340; 87350; J7030